=== PATIENT | male | born 1940 | race Caucasian/White ===

== ENCOUNTER 2020-07-04 06:33 | Day surgery (SDC) | payer MEDICARE, BC ==
[2020-07-04] MEDS ORDERED: Propofol 200 MG/20 ML SDV ONE (07:09)
[2020-07-04] MEDS ORDERED: fentaNYL 100 MCG/2 ML SDV ONE (07:10)
[2020-07-04] MEDS ORDERED: Sodium Chloride 0.9% 1,000 ML IV SCH (07:30)
[2020-07-04 11:59] VITALS: PULSE 85
[2020-07-04 12:16] VITALS: BP 100/64
--- NOTE | 2020-07-05 11:10 | OR ---
DATE OF PROCEDURE: 07/04/2020 SURGEON: Bg Gillis MD PROCEDURE: Colonoscopy. FINDINGS: 1. Diverticula x1 in sigmoid colon. 2. No other gross abnormalities. COMPLICATIONS: None. PRODUCT DEVELOPMENT ENGINEER: None. ANESTHESIA: MAC. PREOPERATIVE DIAGNOSIS: Screening colonoscopy. POSTOPERATIVE DIAGNOSIS: Screening colonoscopy. RISKS: Risks, benefits, alternatives, and limitations including, but not limited to infection, bleeding, perforation and false positives and false negatives were explained to the patient who wished to proceed. PROCEDURE IN DETAIL: The patient was placed in left lateral decubitus position. Digital rectal exam was performed without abnormality except for internal hemorrhoidal tag. Scope was introduced and advanced atraumatically to the ileocecal valve. A photo was taken of the appendiceal orifice. The scope was brought back to the ascending, transverse and descending colon, and retroflexed. No evidence of old or new blood. No masses. No polyps. The patient had diverticula with one noted. No evidence of diverticulitis or bleeding. No abnormalities on retroflexion except for the aforementioned tags. No colitis. No other abnormalities. The prep was acceptable. Approximately 90% of luminal surface could be seen. Greater than 8 minutes was spent removing the scope. The patient tolerated the procedure well. Bg Gillis MD /[id number]
== END 2020-07-04 12:50 | disposition home or self-care (01) ==
LOC: JP.SDS 06:33
PROVIDERS: ATTEND Surgery
DX: Z12.11 Encounter for screening for malignant neoplasm of colon (principal); K57.30 Diverticulosis of large intestine without perforation or abscess without bleeding; I10 Essential (primary) hypertension
CPT/HCPCS: G0121; J2704; J3010; J7030

== ENCOUNTER 2020-10-16 15:09 | Emergency (ER) | payer MEDICARE, BC ==
--- NOTE | 2020-10-16 15:57 | EDM.PDOC ---
ED HPI GENERAL MEDICAL PROBLEM - General Chief Complaint: Upper Extremity Injury/Pain Stated Complaint: HEART ATTACK? ARM PAIN Time Seen by Provider: 10/16/20 15:27 Source of Information: Reports: Patient, RN History Limitations: Reports: No Limitations - History of Present Illness INITIAL COMMENTS - FREE TEXT/NARRATIVE: Patient with a history of cirrhosis, heart stents and is currently here for right-sided chest pain and arm pain into his elbow. Patient states he has taken Mylanta and that did not seem to help. He did not take his nitro because he did not think it was heart related chest pain but he was not sure. He feels the pain is more into the muscle versus the bone on the right arm. He has had no sick contacts. He has not tried anything else to make it better. Onset: Gradual Onset Date: 10/15/20 Duration: Getting Worse Location: Reports: Chest (Right-sided chest and arm pain explains more of a burning versus a sharp or stabbing pain) Quality: Reports: Burning Severity: Moderate Improves with: Reports: None Worsens with: Reports: Movement Context: Reports: Activity Associated Symptoms: Reports: Shortness of Breath (Patient states he is always short of breath) Treatments MACHINE STITCHER: Reports: Other Medication(s) (Mylanta) Right Middle Chest Pain Score (Numeric/FACES): 7 Right Shoulder Pain Score (Numeric/FACES): 8 - Related Data Allergies Allergy/AdvReac Type Severity Reaction Status Date / Time aspirin Allergy Bleeding Verified 10/09/20 08:33 atorvastatin Allergy Other Verified 10/09/20 08:33 Penicillins Allergy Other Verified 10/09/20 08:33 Tetracyclines Allergy Hives Verified 10/09/20 08:33 Home Meds: Home Meds Clopidogrel [Plavix] 75 mg PO DAILY 09/14/14 [History] Furosemide 20 mg PO BID 11/12/16 [History] Potassium Chloride 20 meq PO DAILY 11/12/16 [History] Spironolactone [Aldactone] 100 mg PO DAILY 11/12/16 [History] Cholecalciferol (Vitamin D3) [Vitamin D3] 50 mcg PO DAILY 07/03/20 [History] Cyanocobalamin (Vitamin B-12) [B-12] 1,000 mcg PO DAILY 07/03/20 [History] Ferrous Sulfate 325 mg PO DAILY 07/03/20 [History] Melatonin 3 mg PO BEDTIME 07/03/20 [History] Multivitamin-Min/Iron/FA/Vit K [Multi-Day Plus Minerals Tablet] 1 each PO DAILY 07/03/20 [History] Nitroglycerin 0.3 mg SL ASDIRECTED 07/03/20 [History] Pyridoxine HCl (Vitamin B6) [Vitamin B-6] 500 mg PO DAILY 07/03/20 [History] Metoprolol Tartrate [Lopressor] 12.5 mg PO Q12HR 10/06/20 [History] Past Medical History HEENT History: Reports: Hard of Hearing Other HEENT History: Lazy left eye Cardiovascular History: Reports: High Cholesterol, Hypertension, [place], Stents Respiratory History: Reports: Other (See Below) Other Respiratory History: pleural effusion Gastrointestinal History: Reports: Cholelithiasis, Chronic Diarrhea, Cirrhosis, Colon Polyp, GERD Genitourinary History: Reports: None Musculoskeletal History: Reports: Other (See Below) Other Musculoskeletal History: right ankle fracture Neurological History: Reports: Headaches, Chronic Psychiatric History: Reports: Addiction, Other (See Below) Other Psychiatric History: hx alcoholism Endocrine/Metabolic History: Reports: None Hematologic History: Reports: Anticoagulation Therapy, Blood Transfusion(s) Immunologic History: Reports: None Oncologic (Cancer) History: Reports: None Dermatologic History: Reports: None - Infectious Disease History Infectious Disease History: Reports: Chicken Pox, Mumps - Past Surgical History HEENT Surgical History: Reports: None Cardiovascular Surgical History: Reports: Coronary Artery Stent Other Cardiovascular Surgeries/Procedures: 5 stents Respiratory Surgical History: Reports: Lung Biopsies, Thoracentesis GI Surgical History: Reports: Abdominal paracentesis, Cholecystectomy, Colonoscopy, Hernia, Abdominal Male Surgical History: Reports: None Endocrine Surgical History: Reports: None Musculoskeletal Surgical History: Reports: None Dermatological Surgical History: Reports: None Social & Family History - Family History Family Medical History: No Pertinent Family History - Tobacco Use Tobacco Use Status *Q: Never Tobacco User - Caffeine Use Caffeine Use: Reports: Coffee, Soda, Tea - Recreational Drug Use Recreational Drug Use: No Review of Systems - Review of Systems Review Of Systems: See Below Constitutional: Reports: Weakness, Other (Underweight) Eyes: Reports: No Symptoms Ears: Reports: No Symptoms Nose: Reports: No Symptoms Mouth/Throat: Reports: No Symptoms Respiratory: Reports: Shortness of Breath (Chronic) Cardiovascular: Reports: Chest Pain (Right sided burning). Denies: Palpitations GI/Abdominal: Reports: No Symptoms Musculoskeletal: Reports: Arm Pain (Right arm pain from his shoulder to his elbow more muscular versus joint or bone pain ) Skin: Reports: Jaundice Neurological: Reports: No Symptoms Psychiatric: Reports: No Symptoms ED EXAM, GENERAL - Physical Exam Exam: See Below Exam Limited By: No Limitations General Appearance: Alert, WD/WN, No Apparent Distress Neck: Normal Inspection, Supple Respiratory/Chest: No Respiratory Distress, Lungs Clear, Other (Pain upper right chest) Cardiovascular: Normal Peripheral Pulses, Regular Rate, Rhythm, No Edema GI/Abdominal: Normal Bowel Sounds, Soft, Distended Extremities: Arm Pain (Right arm pain mostly muscular). No: Non-Tender Neurological: Alert, Oriented, CN II-XII Intact Psychiatric: Normal Affect, Normal Mood Skin Exam: Warm, Intact, Normal Color Lymphatic: No Adenopathy #1 Interpretation EKG Date: 10/16/20 Time: 15:39 Rhythm: NSR Rate (Beats/Min): 93 [place]: Normal P-Wave: Present QRS: Normal ST-T: Elevated (v5-6) EKG Interpretation Comments: sinus rhythm Course - Vital Signs Last Recorded V/S: Last Vital Signs Temp 36.7 C 10/16/20 15:46 Pulse 82 10/16/20 18:35 Resp 22 H 10/16/20 18:26 BP 96/47 L 10/16/20 18:35 Pulse Ox 98 10/16/20 18:26 - Orders/Labs/Meds Orders: Active Orders 24 hr Category Date Time Status EKG 12 Lead [EK] Routine Ther 10/16/20 15:43 Ordered EKG changes as noted in interpretation Labs: Laboratory Tests 10/16/20 10/16/20 10/16/20 Range/Units 16:15 16:27 16:27 WBC 5.9 (4.5-11.0) K/uL RBC 2.91 L (4.30-5.90) M/uL Hgb 10.2 L (12.0-15.0) g/dL Hct 29.1 L (40.0-54.0) % MCV 100 H (80-98) fL MCH 35 H (27-31) pg MCHC 35 (32-36) % Plt Count 179 (150-400) K/uL Sodium 128 L (140-148) mmol/L Potassium 6.4 H* (3.6-5.2) mmol/L Chloride 98 L (100-108) mmol/L Carbon Dioxide 23 (21-32) mmol/L Anion Gap 13.4 (5.0-14.0) mmol/L BUN 19 H (7-18) mg/dL Creatinine 1.3 (0.8-1.3) mg/dL Est Cr Clr Drug Dosing 45.16 mL/min Estimated GFR (MDRD) 53 L (>60) Glucose 118 H (74-106) mg/dL Calcium 8.1 L (8.5-10.1) mg/dL Total Bilirubin 1.2 H (0.2-1.0) mg/dL AST 56 H (15-37) U/L ALT 45 (12-78) U/L Alkaline Phosphatase 162 H (46-116) U/L Troponin I 0.215 H* (0.000-0.056) ng/mL Total Protein 7.1 (6.4-8.2) g/dL Albumin 2.1 L (3.4-5.0) g/dL Globulin 5.0 H (2.3-3.5) g/dL Albumin/Globulin Ratio 0.4 L (1.2-2.2) Elevated Troponin, Elevated Potassium Meds: Medications Discontinued Medications Generic Name Dose Route Start Last Admin Trade Name Freq PRN Reason Stop Dose Admin Aspirin 324 mg 10/16/20 17:58 10/16/20 18:02 Aspirin 81 Mg Tab.Chew PO 10/16/20 17:59 324 mg ONETIME ONE Administration Atorvastatin Calcium 40 mg 10/16/20 18:06 10/16/20 18:33 Atorvastatin 20 Mg Tab PO 10/16/20 18:07 40 mg ONETIME ONE Administration Heparin Sodium (Porcine) 4,000 units 10/16/20 18:10 10/16/20 18:24 Heparin Sodium 5,000 Units/Ml Vial IVPUSH 10/16/20 18:11 4,000 units ONETIME ONE Administration Heparin Sodium/Dextrose 25,000 units in 500 mls @ 16 mls/hr 10/16/20 18:15 10/16/20 18:24 Heparin 25,000 Units In D5w 500 Ml IV 800 units/hr TITRATE PEPITO 16 mls/hr Administration Protocol 800 UNITS/HR Nitroglycerin/Dextrose 25 mg in 250 mls @ 6 mls/hr 10/16/20 18:15 10/16/20 18:30 Nitroglycerin 25 Mg/D5w 250 Ml IV 10 mcg/min TITRATE PEPITO 6 mls/hr Administration Protocol 10 MCG/MIN Metoprolol Tartrate 25 mg 10/16/20 18:06 10/16/20 18:35 Metoprolol Tartrate 25 Mg Tab PO 10/16/20 18:07 Not Given ONETIME ONE - Radiology Interpretation Free Text/Narrative:: Consult to [facility] -Dr. Turner. In agreement elevated troponin 0.215 and S-T changes on EKg. Pt needs angiogram. NO Bed in [place] Call to [facility]. Consult Cardiology Dr. Dugan - agreement Requests Start of Heparin gtt and Heparin Bolus and Drip, Nitro gtt, Atorvastatin and metoprolol if pressure can accommodate Chest xray with atherosclerotic calcification in coronary arteries likely scaring and fibrosis as noted per radiology - Incidental finding of 3mm nodular density with needed followup in 3 months per radiology recommendation. - Re-Assessments/Exams Free Text/Narrative Re-Assessment/Exam: 10/16/20 18:39 Pt agrees to transfer to higher level of care related to EKG changes and elevated troponin. Departure - Departure Time of Disposition: 18:47 Disposition: DC/Tfer to Acute Hospital 02 Condition: Fair Clinical Impression: Acute coronary syndrome with high troponin - Discharge Information Referrals: Roshni Garnica DO [Primary Care Provider] - Forms: ED Department Discharge Care Plan Goals: Pt bolused with heparin and heparin drip started. Atorvastatin and ASA given PER WATCH AND CLOCK REPAIRER direction. Nitro held due to low pressure, Metoprolol held due to low pressure - Will send both with ambulance crew. Pt to go to [facility] ER - Acceptance by Dr. Dugan - Cardiology Sepsis Event Note (ED) - Evaluation Sepsis Screening Result: No Definite Risk - Focused Exam Vital Signs: Vital Signs Temp Pulse Pulse Resp BP BP Pulse Ox 10/16/20 18:35 82 96/47 L 10/16/20 18:26 84 22 H 99/63 98 10/16/20 18:02 82 16 99/63 97 10/16/20 16:18 89 16 109/69 100 10/16/20 15:48 92 15 107/62 94 L 10/16/20 15:46 36.7 C 102 H 15 114/61 97 10/16/20 15:25 36.7 C 102 H 15 114/61 97 - My Orders Last 24 Hours: My Active Orders 10/16/20 15:43 EKG 12 Lead [EK] Routine - Assessment/Plan Last 24 Hours: My Active Orders 10/16/20 15:43 EKG 12 Lead [EK] Routine Assessment:: Acute Coronary Syndrome with elevated troponin Plan: Transfer to higher level of care - Cardiology Dr. Dugan - [facility]
--- NOTE | 2020-10-16 17:03 | CRLCR ---
For Patients: As a result of the Century Cures Act, medical imaging exams and procedure reports are released immediately into your electronic medical record. You may view this report before your referring provider. If you have questions, please contact your health care provider. INDICATION: Shortness of breath TECHNIQUE: Chest radiograph 2 views COMPARISON: 11/12/2016 FINDINGS: Mediastinum: Severe atherosclerotic calcifications are noted in the coronary arteries. The heart silhouette is normal in size and morphology. Lung: Streaky linear opacities are present the medial right lung base with architecture distortion, likely due to scarring and fibrosis. There is a 3 mm nodular density in the left apex not definitely appreciated on prior examination. New blunting of the left costophrenic sulcus is present which may be due to small pleural effusion. Chronic blunting of the right lateral costophrenic sulcus is noted. No pneumothorax is identified. Bone and Soft tissue: Unremarkable for age. IMPRESSIONS: 1. Streaky linear opacities are present the medial right lung base with architecture distortion, likely due to scarring and fibrosis. 2. There is a 3 mm nodular density in the left apex not definitely appreciated on prior examination. Follow-up chest radiograph in 3 months is recommended. 3. New blunting of the left costophrenic sulcus is present which may be due to small pleural effusion. Chronic blunting of the right lateral costophrenic sulcus is noted. 4. Severe atherosclerotic calcifications are noted in the coronary arteries. Dictated by Peter Padilla MD @ 10/16/2020 5:02:26 PM Dictated by: Peter Padilla MD @ 10/16/2020 17:02:30 (Electronically Signed)
[2020-10-16] MEDS ORDERED: Aspirin 81 MG Tab.Chew PO ONE (17:58)
[2020-10-16] MEDS ORDERED: Metoprolol Tartrate 25 MG Tab PO ONE (18:06)
[2020-10-16] MEDS ORDERED: atorvaSTATin 20 MG Tab PO ONE (18:06)
[2020-10-16] MEDS ORDERED: Heparin Sodium 5,000 Units/ML Vial IVPUSH ONE (18:10)
[2020-10-16] MEDS ORDERED: Nitroglycerin/D5W 25 MG/250 ML BOTTLE IV SCH (18:15)
[2020-10-16] MEDS ORDERED: Heparin Sodium/D5W 25,000 UNITS/500 ML BAG IV SCH (18:15)
[2020-10-16 18:36] VITALS: BP 96/47; PULSE 82
== END 2020-10-16 19:14 ==
LOC: JP.ED 15:09
DX: I24.9 Acute ischemic heart disease, unspecified (principal); R79.89 Other specified abnormal findings of blood chemistry; I10 Essential (primary) hypertension; I25.2 Old myocardial infarction; Z88.8 Allergy status to other drugs, medicaments and biological substances; Z88.0 Allergy status to penicillin; Z88.1 Allergy status to other antibiotic agents; Z79.01 Long term (current) use of anticoagulants; Z79.02 Long term (current) use of antithrombotics/antiplatelets; Z79.899 Other long term (current) drug therapy
CPT/HCPCS: 36415; 71046; 80053; 84484; 85027; 93005; 96374; 96375; 99285; A9270; J1644; J3490

== ENCOUNTER 2020-10-30 09:34 | Emergency (ER) | payer MEDICARE, BC ==
--- NOTE | 2020-10-30 10:35 | CT ---
Head wo Cont CLINICAL HISTORY: Obtunded COMPARISON: None TECHNIQUE: Transverse scans were obtained from the base of the skull through the vertex without IV contrast on a multislice, multidetector CT scanner. Auto dosage reduction and iterative reconstruction techniques employed. FINDINGS: There is a subcentimeter well demarcated low-attenuation focus in the right thalamus. There is no mass effect, hemorrhage, or extraaxial collection. The basal cisterns and sulci over the convexities are prominent. The ventricles are mildly prominent. 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
[2020-10-30] MEDS ORDERED: Iopamidol 612 MG/ML 100 ML Bottle IV PRN (12:06)
[2020-10-30] MEDS ORDERED: Sodium Chloride 0.9% 10 ML SDV FLUSH ONE (12:06)
--- NOTE | 2020-10-30 12:08 | EDM.PDOC ---
ED HPI GENERAL MEDICAL PROBLEM - General Chief Complaint: Neuro Symptoms/Deficits Stated Complaint: MEDICAL [facility] Time Seen by Provider: 10/30/20 09:45 Source of Information: Reports: Patient, Family History Limitations: Reports: Altered Mental Status - History of Present Illness INITIAL COMMENTS - FREE TEXT/NARRATIVE: This is a 79-year-old male who presents with altered mental status. History is limited due to his altered mentation. EMS found him in the home after his son called to check on him and reports that he was confused prompting him to call EMS. He has a history of liver disease and was recently hospitalized in [place]. He is noted to be wearing a life pack. Patient denies any concerns but only can say that "hes fine" and report his age. He was hemodynamically stable for EMS - Related Data Allergies Allergy/AdvReac Type Severity Reaction Status Date / Time aspirin Allergy Bleeding Verified 10/30/20 11:02 atorvastatin Allergy Other Verified 10/30/20 11:02 Penicillins Allergy Other Verified 10/30/20 11:02 Tetracyclines Allergy Hives Verified 10/30/20 11:02 Home Meds: Home Meds Clopidogrel [Plavix] 75 mg PO DAILY 09/14/14 [History] Furosemide 2 tab PO DAILY 11/12/16 [History] Spironolactone [Aldactone] 25 mg PO DAILY 11/12/16 [History] Cholecalciferol (Vitamin D3) [Vitamin D3] 50 mcg PO DAILY 07/03/20 [History] Cyanocobalamin (Vitamin B-12) [B-12] 1,000 mcg PO DAILY 07/03/20 [History] Ferrous Sulfate 325 mg PO DAILY 07/03/20 [History] Melatonin 6 mg PO BEDTIME 07/03/20 [History] Multivitamin-Min/Iron/FA/Vit K [Multi-Day Plus Minerals Tablet] 1 each PO DAILY 07/03/20 [History] Nitroglycerin 0.3 mg SL ASDIRECTED 07/03/20 [History] Pyridoxine HCl (Vitamin B6) [Vitamin B-6] 500 mg PO DAILY 07/03/20 [History] Aspirin 1 tab PO DAILY 10/30/20 [History] Lactulose 30 ml PO DAILY 10/30/20 [History] Magnesium Oxide/Mag AA Chelate [Magnesium] 300 mg PO DAILY PRN 10/30/20 [History] Metoprolol Succinate 12.5 mg PO DAILY 10/30/20 [History] Pantoprazole Sodium [Protonix] 40 mg PO ACBREAKFAST 10/30/20 [History] Rifaximin [Xifaxan] 550 mg PO BID 10/30/20 [History] lisinopriL [Lisinopril] 2.5 mg PO DAILY 10/30/20 [History] Past Medical History HEENT History: Reports: Hard of Hearing Other HEENT History: Lazy left eye Cardiovascular History: Reports: High Cholesterol, Hypertension, SD, Stents Respiratory History: Reports: Other (See Below) Other Respiratory History: pleural effusion Gastrointestinal History: Reports: Cholelithiasis, Chronic Diarrhea, Cirrhosis, Colon Polyp, GERD, Other (See Below) Other Gastrointestinal History: varicies Genitourinary History: Reports: None Musculoskeletal History: Reports: Other (See Below) Other Musculoskeletal History: right ankle fracture Neurological History: Reports: Headaches, Chronic Psychiatric History: Reports: Addiction, Other (See Below) Other Psychiatric History: hx alcoholism Endocrine/Metabolic History: Reports: None Hematologic History: Reports: Anticoagulation Therapy, Blood Transfusion(s) Immunologic History: Reports: None Oncologic (Cancer) History: Reports: None Dermatologic History: Reports: None - Infectious Disease History Infectious Disease History: Reports: Chicken Pox, Mumps - Past Surgical History Head Surgeries/Procedures: Reports: None HEENT Surgical History: Reports: None Cardiovascular Surgical History: Reports: Coronary Artery Stent Other Cardiovascular Surgeries/Procedures: 5 stents Respiratory Surgical History: Reports: Lung Biopsies, Thoracentesis GI Surgical History: Reports: Abdominal paracentesis, Appendectomy, Cholecystectomy, Colonoscopy, Hernia, Abdominal, Other (See Below) Other GI Surgeries/Procedures: esophogeal varicies banded Musculoskeletal Surgical History: Reports: None Social & Family History - Family History Family Medical History: No Pertinent Family History - Tobacco Use Tobacco Use Status *Q: Never Tobacco User - Caffeine Use Caffeine Use: Reports: Soda, Tea - Recreational Drug Use Recreational Drug Use: No ED ROS GENERAL - Review of Systems Review Of Systems: Unable To Obtain Reason Not Obtained: Altered mental status ED EXAM, NEURO - Physical Exam Exam: See Below Exam Limited By: Altered Mental Status General Appearance: Obtunded Ears: Normal External Exam Nose: Normal Inspection Throat/Mouth: Normal Inspection Head Exam: Atraumatic, Normocephalic Neck: Normal Inspection Respiratory/Chest: No Respiratory Distress, Lungs Clear Cardiovascular: Regular Rate, Rhythm GI/Abdominal: Other (Softly distended, no obvious tenderness, diffuse ecchymosis along the right flank.) Neurological: Other (Only oriented to self, follows basic commands, protecting airway, moving all extremities) Back Exam: Normal Inspection Extremities: Normal Inspection Psychiatric: Normal Affect Skin Exam: Warm, Ecchymosis Course - Vital Signs Last Recorded V/S: Last Vital Signs Temp 36.3 C 10/30/20 11:01 Pulse 80 10/30/20 14:45 Resp 12 10/30/20 14:45 BP 106/65 10/30/20 14:45 Pulse Ox 95 10/30/20 14:45 - Orders/Labs/Meds Orders: Active Orders 24 hr Category Date Time Status Iopamidol [Isovue-300 (61%)] Med 10/30/20 12:06 Active 100 ml IV . DIRECTED PRN Add On Test [COMM] Routine Oth 10/30/20 10:57 Ordered Medication Orders Iopamidol (Iopamidol 612 Mg/Ml 100 Ml Bottle) 100 ml IV . DIRECTED PRN PRN Reason: RADIOLOGY EXAM Stop: 10/31/20 12:07 Last Admin: 10/30/20 12:27 Dose: 100 ml Documented by: [facility] Labs: Laboratory Tests 10/30/20 10/30/20 10/30/20 Range/Units 10:14 10:14 10:14 WBC 6.8 (4.5-11.0) K/uL RBC 2.60 L (4.30-5.90) M/uL Hgb 8.7 L (12.0-15.0) g/dL Hct 25.9 L (40.0-54.0) % MCV 100 H (80-98) fL MCH 34 H (27-31) pg MCHC 34 (32-36) % Plt Count 190 (150-400) K/uL PT 12.1 H (9.5-12.0) sec INR 1.11 (0.80-1.20) Sodium 129 L (140-148) mmol/L Potassium 4.8 (3.6-5.2) mmol/L Chloride 98 L (100-108) mmol/L Carbon Dioxide 25 (21-32) mmol/L Anion Gap 10.8 (5.0-14.0) mmol/L BUN 36 H D (7-18) mg/dL Creatinine 1.2 (0.8-1.3) mg/dL Est Cr Clr Drug Dosing TNP Estimated GFR (MDRD) 58 L (>60) Glucose 102 (74-106) mg/dL Calcium 7.9 L (8.5-10.1) mg/dL Total Bilirubin 1.2 H (0.2-1.0) mg/dL AST 80 H (15-37) U/L ALT 64 (12-78) U/L Alkaline Phosphatase 185 H (46-116) U/L Ammonia (11-32) umol/L Creatine Kinase 104 (39-308) U/L Total Protein 6.8 (6.4-8.2) g/dL Albumin 2.0 L (3.4-5.0) g/dL Globulin 4.8 H (2.3-3.5) g/dL Albumin/Globulin Ratio 0.4 L (1.2-2.2) Urine Color (YELLOW) Urine Appearance (CLEAR) Urine pH (5.0-8.0) Ur Specific Omega (1.008-1.030) Urine Protein (NEGATIVE) mg/dL Urine Glucose (UA) (NEGATIVE) mg/dL Urine Ketones (NEGATIVE) mg/dL Urine Occult Blood (NEGATIVE) Urine Nitrite (NEGATIVE) Urine Bilirubin (NEGATIVE) Urine Urobilinogen (0.2-1.0) EU/dL Ur Leukocyte Esterase (NEGATIVE) Urine RBC (0-5) Urine WBC (0-5) Ur Epithelial Cells Amorphous Sediment Urine Bacteria Urine Mucus Ethyl Alcohol mg/dL 10/30/20 10/30/20 10/30/20 Range/Units 10:14 12:58 14:41 WBC (4.5-11.0) K/uL RBC (4.30-5.90) M/uL Hgb (12.0-15.0) g/dL Hct (40.0-54.0) % MCV (80-98) fL MCH (27-31) pg MCHC (32-36) % Plt Count (150-400) K/uL PT (9.5-12.0) sec INR (0.80-1.20) Sodium (140-148) mmol/L Potassium (3.6-5.2) mmol/L Chloride (100-108) mmol/L Carbon Dioxide (21-32) mmol/L Anion Gap (5.0-14.0) mmol/L BUN (7-18) mg/dL Creatinine (0.8-1.3) mg/dL Est Cr Clr Drug Dosing Estimated GFR (MDRD) (>60) Glucose (74-106) mg/dL Calcium (8.5-10.1) mg/dL Total Bilirubin (0.2-1.0) mg/dL AST (15-37) U/L ALT (12-78) U/L Alkaline Phosphatase (46-116) U/L Ammonia 65 H (11-32) umol/L Creatine Kinase (39-308) U/L Total Protein (6.4-8.2) g/dL Albumin (3.4-5.0) g/dL Globulin (2.3-3.5) g/dL Albumin/Globulin Ratio (1.2-2.2) Urine Color Yellow (YELLOW) Urine Appearance Cloudy A (CLEAR) Urine pH 6.0 (5.0-8.0) Ur Specific Omega 1.020 (1.008-1.030) Urine Protein Trace H (NEGATIVE) mg/dL Urine Glucose (UA) Negative (NEGATIVE) mg/dL Urine Ketones Negative (NEGATIVE) mg/dL Urine Occult Blood Negative (NEGATIVE) Urine Nitrite Negative (NEGATIVE) Urine Bilirubin Negative (NEGATIVE) Urine Urobilinogen 0.2 (0.2-1.0) EU/dL Ur Leukocyte Esterase Negative (NEGATIVE) Urine RBC 0-5 (0-5) Urine WBC 5-10 H (0-5) Ur Epithelial Cells Not seen Amorphous Sediment Few Urine Bacteria Many Urine Mucus Not seen Ethyl Alcohol < 3 mg/dL Meds: Medications Generic Name Dose Route Start Last Admin Trade Name Freq PRN Reason Stop Dose Admin Iopamidol 100 ml 10/30/20 12:06 10/30/20 12:27 Iopamidol 612 Mg/Ml 100 Ml Bottle IV 10/31/20 12:07 100 ml . DIRECTED PRN Administration RADIOLOGY EXAM Discontinued Medications Generic Name Dose Route Start Last Admin Trade Name Freq PRN Reason Stop Dose Admin Sodium Chloride 100 mls @ 3 mls/sec 10/30/20 12:15 10/30/20 12:27 Normal Saline IV 10/30/20 12:16 3 mls/sec ASDIRECTED PEPITO Administration Lactulose 10 gm 10/30/20 13:46 10/30/20 13:55 Lactulose Soln 10 Gm/15 Ml 15 Ml Ud Cup PO 10/30/20 13:47 10 gm ONETIME ONE Administration Sodium Chloride 10 ml 10/30/20 12:06 10/30/20 12:27 Sodium Chloride 0.9% 10 Ml Sdv FLUSH 10/30/20 12:07 10 ml ONETIME ONE Administration - Re-Assessments/Exams Free Text/Narrative Re-Assessment/Exam: 79-year-old male with history of alcoholic liver disease presents with encephalopathy. On initial exam is noted to have stable vitals. Encephalopathic but protecting airway, he knows his name but unable to logically answer any other questions. No localizing neurologic findings. Exam shows abdominal distention consistent with his known ascites and liver disease, there is some scattered ecchymosis along the right flank as noted. Initial presentation somewhat undifferentiated. We obtained a head CT which without any acute abnormality. With the signs of trauma on his flank had some concern for possible RP bleed or other traumatic intra-abdominal injury so a CT of the abdomen was also obtained, this showed significant ascites but no evidence of hemorrhage or other acute process. Labs most remarkable for a elevated ammonia of 65. Although this is not an impressive elevation his symptoms do seem consistent with hyperammonemia and his son, who was able to provide further history, reports that he is very sensitive to elevated ammonia and likely is missed several doses of his lactulose. Ammonia value was in the 30s at his hospitalization several days ago. Family is very motivated to try and get the patient back home. They have arranged for him to live with a family member while he look for assisted living. Patient was able to tolerate his p.o. lactulose in the ED. We are planning to increase this to 2-3 times daily until he is having liquid stools. I have arranged follow-up with his primary care physician as well as the surgery clinic for paracentesis. I think the discharge plan with family is safe, however we all acknowledged that he is high risk to need repeat hospitalization in the short-term and family knows they can utilize the ED if they were ever feeling like he is unsafe. 10/30/20 16:28 Departure - Departure Time of Disposition: 16:30 Disposition: Home, Self-Care 01 Clinical Impression: Hepatic encephalopathy - Discharge Information Instructions: Hepatic Encephalopathy Referrals: PCP,None [Primary Care Provider] - Forms: ED Department Discharge Additional Instructions: As we discussed, please increase Jose Rafael's lactulose to 2-3 times daily to ensure that he is having regular soft bowel movements. Continue to follow his mental status closely, we would expect some resolution over the coming couple days if his confusion is due to elevated ammonia and lack of lactulose therapy. If you ever feel that Jose Rafael is not safe to be at home, please do return to the ED as we are happy to reevaluate him and find a safe placement for him. This would likely require hospitalization. Thank you for trusting us care for you today. Sepsis Event Note (ED) - Evaluation Sepsis Screening Result: No Definite Risk - Focused Exam Vital Signs: Vital Signs Temp Pulse Resp BP Pulse Ox 10/30/20 14:45 80 12 106/65 95 10/30/20 14:15 78 12 107/70 95 10/30/20 13:45 76 12 103/71 95 10/30/20 12:48 71 15 94/51 L 10/30/20 11:01 36.3 C 74 12 112/53 L 100 10/30/20 10:56 36.3 C 74 12 112/53 L 100 10/30/20 10:00 80 15 112/53 L 96 10/30/20 09:41 77 112/68 98 - My Orders Last 24 Hours: My Active Orders 10/30/20 10:57 Add On Test [COMM] Routine 10/30/20 12:06 Iopamidol [Isovue-300 (61%)] 100 ml IV . DIRECTED PRN - Assessment/Plan Last 24 Hours: My Active Orders 10/30/20 10:57 Add On Test [COMM] Routine 10/30/20 12:06 Iopamidol [Isovue-300 (61%)] 100 ml IV . DIRECTED PRN
[2020-10-30] MEDS ORDERED: Sodium Chloride 0.9% 100 ML IV SCH (12:15)
[2020-10-30] MEDS ORDERED: Lactulose Soln 10 GM/15 ML 15 ML UD Cup PO ONE (13:46)
--- NOTE | 2020-10-30 14:11 | CT ---
Abdomen Pelvis w Cont CLINICAL HISTORY: Flank hematoma COMPARISON: None. TECHNIQUE: Transverse scans were obtained from the base of the lungs to the pubic symphysis following oral contrast and IV infusion of contrast.Auto dosage reduction and iterative reconstructiontechniques employed. FINDINGS: There is a large left pleural effusion. There is a small right effusion. There is patchy right lower lobe airspace disease with an area of pleural-based consolidation in the medial basal segment. There is significant abdominal pelvic ascites The liver is small and irregular. There are large esophageal varices. Patient has a lateral hernia The gallbladder has been removed. The spleen has a normal size and shape. The pancreas shows no mass.. The adrenal glands appear normal bilaterally . The kidneys show no mass, stones or hydronephrosis. The ureters are poorly seen. The bladder has a normal contour. The aorta shows moderate atheromatous change. 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 Iliac arteries are moderately ectatic. There is no suspicious retroperitoneal adenopathy. Specifically, no abdominal wall retroperitoneal hematoma is identified. The abdominal pelvic ascites measures fluid density. IMPRESSION: Massive abdominal pelvic ascites Large left pleural effusion. There is a small right pleural effusion and airspace disease and some consolidation in the right lower lobe Cirrhotic changes in the liver with large esophageal varices No hematoma is identified
[2020-10-30 15:18] VITALS: BP 106/65; PULSE 80
== END 2020-10-30 17:48 | disposition home or self-care (01) ==
LOC: JP.ED 09:34
DX: K72.90 Hepatic failure, unspecified without coma (principal); E78.00 Pure hypercholesterolemia, unspecified; I10 Essential (primary) hypertension; I25.2 Old myocardial infarction; K21.9 Gastro-esophageal reflux disease without esophagitis; Z88.1 Allergy status to other antibiotic agents; Z88.8 Allergy status to other drugs, medicaments and biological substances; Z79.02 Long term (current) use of antithrombotics/antiplatelets; Z79.82 Long term (current) use of aspirin; Z79.899 Other long term (current) drug therapy
CPT/HCPCS: 36415; 70450; 74177; 80053; 80307; 81001; 82140; 82550; 85027; 85610; 99285; A9270; Q9967